=== PATIENT | female | born 1955 | race Caucasian/White ===

== ENCOUNTER 2016-10-25 10:02 | Emergency (ER) | payer OTHER ==
[2016-10-25] MEDS ORDERED: NS 1,000 ML IV ONE (10:10)
--- NOTE | 2016-10-25 10:14 | EDPHY ---
HPI/HX/ROS/PE/MDM Narrative: Portions of this note were transcribed by an ED scribe. I personally performed the history, physical exam, and medical decision making; and confirm the accuracy of the information in the transcribed note. CHIEF COMPLAINT: Abdominal pain HPI: The patient is a 61 y/o female arriving via EMS complaining of a 12-hour episode of abdominal pain worsening since last night. She has a history of IBS and says the pain is similar as previous episodes but worse. Her pain is primarily located in her epigastric region and sometimes extends in a band across her upper abdomen and through to her back. The pain is "cramping" in quality and described as "unrelenting." She has not taken anything for her pain yet. She denies history of problems with her gallbladder, liver, or pancreas. No hematemesis, bloody bowel movements, or fever. REVIEW OF SYSTEMS: Aside from elements discussed in the HPI, a comprehensive 10-point review of systems was reviewed and is negative. PMH: IBS, pelvic tumor removal, oophorectomies SOCIAL HISTORY: Lives in [place]. PHYSICAL EXAM: General:Patient is alert, in no acute distress. ENT:Eyes are normal to inspection. ENT inspection normal. Neck: Normal inspection. Full range of motion. Respiratory:No respiratory distress. Breath sounds normal bilaterally. Cardiovascular: Regular rate and rhythm. Strong peripheral pulses. Normal cap refill. Abdomen:The abdomen has moderate epigastric tenderness to palpation. There are no peritoneal signs. There are normal bowel sounds. Back: Normal to inspection. No tenderness to palpation. Skin: Normal color. No rash. Warm and dry. Extremities: Normal appearance. Full range of motion. Neuro: Oriented x3. Normal motor function. Normal sensory function. ED Course: IV established. Labs drawn including CBC, CHEM, lipase, LFTs. UA ordered. 1L IV NS administered. Plan for abdominal CT. Study: CT of the Abdomen Indication: pain Results: CT scan of the abdomen was obtained. The results of the study are 1. Cholelithiasis without pericholecystic fluid. 2. Ventral hernia containing mesenteric fat. Nodularity and scarring anterior to the left rectus abdominis may be secondary to prior surgical intervention. 3. Trace peritoneal fluid in the pelvis. The study was read by the radiologist, Dr. Lopez. I viewed the images myself on the PACS system. Study: Ultrasound of the: Abdomen Indication: Pain Results: US scan of the abdomen was obtained. The results of the study are single stone, no cholecystitis. The study was read by the radiologist, Dr. Lopez. I viewed the images myself on the PACS system. MDM: This patient presents with epigastric pain similar to prior IBS episodes. We performed an extensive workup including US and CT - there is no evidence of bowel obstruction, perforation, appendicitis, cholecystitis or sepsis. Patient has no chest pain or cardiac symptoms to suggest a cardiac etiology. She is comfortable with the plan to go home with a prescription for Bentyl. We discussed strict return precautions. - Data Points Laboratory Results: Laboratory Results 10/25/16 10:10 10/25/16 10:10 10/25/16 10:10 WBC 11.69 H 10^3/uL (3.80-9.50) RBC 5.26 10^6/uL (4.18-5.33) Hgb 15.6 g/dL (12.6-16.3) Hct 44.7 % (38.0-47.0) MCV 85.0 fL (81.5-99.8) MCH 29.7 pg (27.9-34.1) MCHC 34.9 g/dL (32.4-36.7) RDW 13.9 % (11.5-15.2) Plt Count 352 10^3/uL (150-400) MPV 9.5 fL (8.7-11.7) Neut % (Auto) 88.2 H % (39.3-74.2) Lymph % (Auto) 8.9 L % (15.0-45.0) [place] % (Auto) 2.3 L % (4.5-13.0) Eos % (Auto) 0.0 L % (0.6-7.6) Baso % (Auto) 0.3 % (0.3-1.7) Nucleat RBC Rel Count 0.0 % (0.0-0.2) Absolute Neuts (auto) 10.30 H 10^3/uL (1.70-6.50) Absolute Lymphs (auto) 1.04 10^3/uL (1.00-3.00) Absolute Monos (auto) 0.27 L 10^3/uL (0.30-0.80) Absolute Eos (auto) 0.00 L 10^3/uL (0.03-0.40) Absolute Basos (auto) 0.04 10^3/uL (0.02-0.10) Absolute Nucleated RBC 0.00 10^3/uL (0-0.01) Immature Gran % 0.3 % (0.0-1.1) Immature Gran # 0.04 10^3/uL (0.00-0.10) Sodium 141 mEq/L (134-144) Potassium 4.2 mEq/L (3.5-5.2) Chloride 104 mEq/L (97-110) Carbon Dioxide 23 mEq/l (22-31) Anion Gap 14 mEq/L (8-16) BUN 17 mg/dL (7-23) Creatinine 0.7 mg/dL (0.6-1.0) Estimated GFR > 60 Glucose 153 H mg/dL (70-100) Calcium 9.9 mg/dL (8.5-10.4) Total Bilirubin 1.0 mg/dL (0.1-1.4) Conjugated Bilirubin 0.6 H mg/dL (0.0-0.5) Unconjugated Bilirubin 0.4 mg/dL (0.0-1.1) AST 26 IU/L (14-46) ALT 23 IU/L (9-52) Alkaline Phosphatase 118 IU/L (38-126) Total Protein 8.0 g/dL (6.3-8.2) Albumin 4.6 g/dL (3.5-5.0) Lipase 73.0 IU/L (23-300) Medications Given: Discontinued Medications Sodium Chloride (Ns) 1,000 mls @ 0 mls/hr IV ONCE ONE PRN Reason: Wide Open Stop: 10/25/16 10:11 Last Admin: 10/25/16 10:13 Dose: 1,000 mls General Time Seen by Provider: 10/25/16 10:04 Initial Vital Signs: Initial Vital Signs Temperature (C) 36.8 C 10/25/16 10:22 Heart Rate 90 10/25/16 10:22 Respiratory Rate 16 10/25/16 10:22 Blood Pressure 158/90 H 10/25/16 10:22 O2 Sat (%) 95 10/25/16 10:22 O2 Delivery Mode Room Air Allergies/Adverse Reactions: acetaminophen [From Vicodin] Allergy (Verified 10/25/16 10:21) codeine Allergy (Verified 10/25/16 10:21) erythromycin base Allergy (Verified 10/25/16 10:21) hydrocodone bitartrate [From Vicodin] Allergy (Verified 10/25/16 10:21) Penicillins Allergy (Verified 10/25/16 10:20) Home Medications: Medication Instructions Recorded Dicyclomine [Bentyl 20 MG (*)] 20 mg PO QID #20 tab 10/25/16 Synthroid 10/25/16 Departure - Departure Disposition: Home, Routine, Self-Care Clinical Impression: Abdominal pain Qualifiers: Abdominal location: epigastric Qualifier Code: (R10.13) Epigastric pain Condition: Good Instructions: Abdominal Pain (ED) Additional Instructions: Follow up with your catcher helper in 2-3 days and bring your imaging CD. Return to the ED for worsening of condition. Referrals: Patient,NotPresent [Unknown] - As per Instructions Miranda Mina MD [Medical Doctor] - As per Instructions Prescriptions: Dicyclomine [Bentyl 20 MG (*)] 20 mg PO QID #20 tab
[2016-10-25 10:17] LABS: % IMMATURE GRANULYOCYTES 0.3 % (0.0-1.1); ABSOLUTE IMMATURE GRANULOCYTES 0.04 10^3/uL (0.00-0.10); ADD DIFF? NO; ADD MORPH? NO; ADD SCAN? NO; ATYPICAL LYMPHOCYTE FLAG 0 (0-99); FRAGMENT RBC FLAG 0 (0-99); HEMATOCRIT 44.7 % (38.0-47.0); HEMOGLOBIN 15.6 g/dL (12.6-16.3); LEFT SHIFT FLG 0 (0-99); LIPEMIA HEMOLYSIS FLAG 90 (0-99); MEAN CELL HEMOGLOBIN 29.7 pg (27.9-34.1); MEAN CELL HEMOGLOBIN CONCENTR. 34.9 g/dL (32.4-36.7); MEAN PLATELET VOLUME 9.5 fL (8.7-11.7); PLATELET CLUMPS FLAG 0 (0-99); PLATELET COUNT 352 10^3/uL (150-400); RED BLOOD CELL COUNT 5.26 10^6/uL (4.18-5.33); RED CELL DISTRIBUTION WIDTH 13.9 % (11.5-15.2)
[2016-10-25 10:24] VITALS: RESP 16
[2016-10-25 10:29] LABS: ALANINE AMINOTRANSFERASE 23 IU/L (9-52); ALBUMIN 4.6 g/dL (3.5-5.0); ALKALINE PHOSPHATASE 118 IU/L (38-126); ANION GAP 14 mEq/L (8-16); ASPARTATE AMINOTRANSFERASE 26 IU/L (14-46); BILIRUBIN-CONJUGATED 0.6 mg/dL (0.0-0.5); BILIRUBIN-UNCONJUGATED 0.4 mg/dL (0.0-1.1); CALCIUM 9.9 mg/dL (8.5-10.4); CARBON DIOXIDE 23 mEq/l (22-31); CHLORIDE 104 mEq/L (97-110); CREATININE 0.7 mg/dL (0.6-1.0); GLOMERULAR FILTRATION RATE > 60; GLUCOSE 153 mg/dL (70-100); POTASSIUM 4.2 mEq/L (3.5-5.2); SODIUM 141 mEq/L (134-144)
[2016-10-25] MEDS ORDERED: IOPAMIDOL (ISOVUE-300) 100 ML BTL IV ONE (10:42)
--- NOTE | 2016-10-25 11:57 | CT ---
CT Scan of the Abdomen and Pelvis (With Contrast) Clinical Indications: Upper abdominal pain. Technique: 94 mL of Isovue 300 were given intravenously by machine power injection. Multidetector he lical CT imaging was performed from the diaphragm to the symphysis pubis. Dose reduction techniques w ere utilized. Findings CT abdomen: Lung bases are clear. Liver, spleen, pancreas, and kidneys appear normal. Adrenal glands are unremarkable. An accessory spleen is incidentally noted below the splenic hilum. There is a small calcific density in the dependent gallbladder suggestive of a calculus. No perichole cystic fluid. Diastasis of the rectus abdominis in the midline abdominal wall as noted above the umbilicus, compati ble with a ventral hernia containing a small amount of fat. There is also soft tissue density and str anding anterior to the left rectus abdominis at the level of the umbilicus, which may represent scarr ing from prior surgery. CT pelvis: The appendix appears intact. The cecum is transposed into the pelvis. There is a small mark unt of peritoneal free fluid. Postsurgical changes are present. Impressions: 1. Cholelithiasis without pericholecystic fluid. 2. Ventral hernia containing mesenteric fat. Nodularity and scarring anterior to the left rectus abdo minis may be secondary to prior surgical intervention. 3. Trace peritoneal fluid in the pelvis. Results called to Dr. Imtiaz Ogden at 11:30 a.m.
--- NOTE | 2016-10-25 13:23 | US ---
Right upper quadrant Abdominal Ultrasound History: Right upper quadrant pain. Comparison: CT abdomen/pelvis, same day. Findings: The liver has normal echotexture and contour. There is no intrahepatic biliary dilatation. The common bile duct measures up to 5 mm mm and is normal. A single 6 mm calculus is identified withi n the dependent gallbladder. No gallbladder wall thickening or significant pericholecystic fluid. The right kidney measures 10.4 cm in sagittal diameter without hydronephrosis or mass. The visible aorta is normal caliber . The visible portions of the pancreas are normal with partial obscuration of the pancreatic head and tail by overlying bowel gas. The visible portions of the IVC are normal. Impression: Single mobile gallstone, otherwise negative right upper quadrant ultrasound examination. Results called to Dr. Imtiaz Ogden at 1:15 PM.
[2016-10-25 13:39] LABS: COLOR PALE YELLOW; LEUKOCYTE ESTERASE,URINE NEGATIVE (NEGATIVE); NITRITE,URINE NEGATIVE (NEGATIVE)
[2016-10-25 13:51] VITALS: BP 166/98; PULSE 67; TEMP 97.9; O2SAT 94
== END 2016-10-25 14:01 | disposition home or self-care (01) ==
DX: R10.13 Epigastric pain (principal)
CPT/HCPCS: Q9967